=== PATIENT | female | born 1940 | race African-American/Black ===

== ENCOUNTER 2019-07-10 13:33 | Inpatient (IN) ==
[2019-07-10 15:15] LABS: Apearance,Urine CLOUDY (Clear); Bilirubin,Urine Negative (Negative); Blood, Urine Negative (Negative); Glucose,Urine (UA) Negative (Negative); Hyaline Casts,Urine 6 /LPF (0-3); Ketones,Urine 5 mg/dL (Negative); Mucus,Urine Many /LPF (Occasional); Nitrite,Urine Negative (Negative); Protein,Urine 30 MG/DL; RBC,Urine 13 /HPF (0-4); Squamous Epithelial Cell,Urine Occasional /HPF (0-10); Urine Color Yellow (Yellow); Urine Specific Gravity 1.025 (1.001-1.035); Urine Urobilinogen < 2.0 EU/DL (0.2-1.0); WBC,Urine 484 /HPF (0-6)
[2019-07-10] MEDS ORDERED: cefTRIAXone 1,000 MG in SODIUM CHLORIDE 0.9% 100 ML IV STA (15:29)
[2019-07-10 15:43] LABS: Basophils % 0.4 % (0.0-0.8); Eosinophils # 0.1 10*3/uL (0.0-0.87); Eosinophils % 0.9 % (0.00-10.9); Hematocrit 41.1 VOL% (35.7-47.0); Hemoglobin 13.2 GM/DL (12.0-16.0); Immature Granulocytes % 0.3 %; Immature Granulocytes Absolute 0.02 #; Lymphocytes # 2.1 10*3/uL (1.4-4.0); Lymphocytes % 29.9 % (21.3-54.2); Mean Corpuscular HGB Conc 32.1 GM/DL (32-36); Mean Corpuscular Volume 94.3 FL (87-102); Monocytes % 7.2 % (1.7-12.7); Neutrophils % 61.3 % (38.7-73.9); Platelet Count 208 T/CUMM (130-400); Red Blood Count 4.36 MC/CUMM (3.8-5.5); Red Cell Distribution Width 14.3 % (9.3-17.3)
[2019-07-10 15:53] LABS: INR 1.1; PT Patient Result 11.5 SECS (9.6-12.2); Partial Thromboplastin Time 25.7 SECS (20.8-36.0)
[2019-07-10 15:59] LABS: Albumin 3.7 G/DL (3.4-5.0); Bilirubin,Total 0.4 MG/DL (0.2-1.0); Calcium 10.4 MG/DL (8.5-10.1); Osmolality,Calculated 298.3 MOS/KG (273-304); Total Protein 7.9 G/DL (6.4-8.3)
[2019-07-10] MEDS ORDERED: SODIUM CHLORIDE 0.9% 1,000 ML IV SCH (17:00)
[2019-07-10] MEDS ORDERED: ONDANSETRON 4 MG/2 ML VIAL IV PRN (17:57)
[2019-07-10] MEDS ORDERED: ACETAMINOPHEN 325 MG TABLET PO PRN (17:57)
[2019-07-10] MEDS ORDERED: DEXTROSE 10% 250 ML BAG IV PRN (18:26)
[2019-07-10] MEDS ORDERED: GLUCAGON 1 MG VIAL IM PRN (18:26)
[2019-07-10] MEDS: DEXTROSE 5% NACL 0.45% 1,000 ML IV SCH (18:55)
[2019-07-10] MEDS ORDERED: APIXABAN 2.5 MG TABLET PO SCH (21:00)
[2019-07-10] MEDS: GABAPENTIN 100 MG CAPSULE PO SCH (21:11)
[2019-07-10] MEDS: MELATONIN 3 MG TABLET PO SCH (21:11)
[2019-07-10] MEDS: CARVEDILOL 25 MG TABLET PO SCH (21:11)
[2019-07-10] MEDS: DICLOFENAC 1% GEL 100 GM TUBE TOP SCH (21:12)
[2019-07-11] MEDS: DEXTROSE 5% NACL 0.45% 1,000 ML IV SCH ×2 (03:06→11:44)
[2019-07-11 06:14] LABS: Basophils % 0.6 % (0.0-0.8); Eosinophils # 0.1 10*3/uL (0.0-0.87); Eosinophils % 1.1 % (0.00-10.9); Immature Granulocytes % 0.4 %; Immature Granulocytes Absolute 0.02 #; Lymphocytes # 1.8 10*3/uL (1.4-4.0); Lymphocytes % 33.7 % (21.3-54.2); Mean Corpuscular HGB Conc 32.1 GM/DL (32-36); Mean Platelet Volume 11.4 FL (9.6-12.0); Neutrophils % 56.2 % (38.7-73.9); Red Blood Count 3.58 MC/CUMM (3.8-5.5); Red Cell Distribution Width 14.4 % (9.3-17.3); White Blood Count 5.4 T/CUMM (4-12)
[2019-07-11 06:16] LABS: Hemoglobin 10.9 GM/DL (12.0-16.0); Platelet Count 163 T/CUMM (130-400)
[2019-07-11 06:45] LABS: Calcium 9.3 MG/DL (8.5-10.1); Osmolality,Calculated 297.4 MOS/KG (273-304); Thyroid Stimulating Hormone 1.72 uIU/ml (0.358-3.74)
[2019-07-11] MEDS: LOSARTAN 50 MG TABLET PO SCH (08:58)
[2019-07-11] MEDS: ASPIRIN EC 81 MG TABLET PO SCH (08:58)
[2019-07-11] MEDS: CARVEDILOL 25 MG TABLET PO SCH ×2 (08:58→16:27)
[2019-07-11] MEDS: PANTOPRAZOLE 40 MG TABLET PO SCH (08:59)
[2019-07-11] MEDS: SIMVASTATIN 10 MG TABLET PO SCH (08:59)
[2019-07-11] MEDS: CALCIUM (CARBONATE)/VITAMIN D 500 MG-200 UNIT TABLET PO SCH (08:59)
[2019-07-11] MEDS: DICLOFENAC 1% GEL 100 GM TUBE TOP SCH ×4 (08:59→20:04)
[2019-07-11] MEDS: CHOLECALCIFEROL 1,000 UNIT TABLET PO SCH (08:59)
[2019-07-11] MEDS: GABAPENTIN 100 MG CAPSULE PO SCH ×3 (08:59→20:04)
[2019-07-11] MEDS: cefTRIAXone 1,000 MG in SYRINGE 1 EACH IV SCH (09:15)
[2019-07-11] MEDS: ENOXAPARIN 40 MG/0.4 ML SYRINGE SUBCUT SCH (14:23)
[2019-07-11] MEDS: DEXTROSE 5% NACL 0.22% 1,000 ML IV SCH (16:24)
[2019-07-11] MEDS: hydrALAZINE 20 MG/1 ML VIAL IV PRN (16:26)
[2019-07-11] MEDS: MELATONIN 3 MG TABLET PO SCH (20:04)
[2019-07-12] MEDS: DEXTROSE 5% NACL 0.22% 1,000 ML IV SCH ×3 (00:37→21:54)
[2019-07-12 05:21] LABS: Basophils % 0.6 % (0.0-0.8); Eosinophils # 0.1 10*3/uL (0.0-0.87); Eosinophils % 1.2 % (0.00-10.9); Hematocrit 37.6 VOL% (35.7-47.0); Immature Granulocytes % 0.2 %; Immature Granulocytes Absolute 0.01 #; Lymphocytes # 1.5 10*3/uL (1.4-4.0); Lymphocytes % 30.5 % (21.3-54.2); Mean Corpuscular HGB Conc 31.9 GM/DL (32-36); Mean Corpuscular Volume 94.2 FL (87-102); Mean Platelet Volume 11.5 FL (9.6-12.0); Monocytes % 8.4 % (1.7-12.7); Neutrophils % 59.1 % (38.7-73.9); Platelet Count 193 T/CUMM (130-400); Red Blood Count 3.99 MC/CUMM (3.8-5.5); Red Cell Distribution Width 13.9 % (9.3-17.3)
[2019-07-12 05:57] LABS: Calcium 9.6 MG/DL (8.5-10.1); Osmolality,Calculated 289.7 MOS/KG (273-304)
[2019-07-12] MEDS: cefTRIAXone 1,000 MG in SYRINGE 1 EACH IV SCH (08:44)
[2019-07-12] MEDS: GABAPENTIN 100 MG CAPSULE PO SCH ×3 (09:00→21:09)
[2019-07-12] MEDS: CARVEDILOL 25 MG TABLET PO SCH ×2 (09:00→16:47)
[2019-07-12] MEDS: ASPIRIN EC 81 MG TABLET PO SCH (09:00)
[2019-07-12] MEDS: LOSARTAN 50 MG TABLET PO SCH (09:00)
[2019-07-12] MEDS: CHOLECALCIFEROL 1,000 UNIT TABLET PO SCH (09:01)
[2019-07-12] MEDS: DICLOFENAC 1% GEL 100 GM TUBE TOP SCH ×4 (09:01→22:30)
[2019-07-12] MEDS: SIMVASTATIN 10 MG TABLET PO SCH (09:01)
[2019-07-12] MEDS: CALCIUM (CARBONATE)/VITAMIN D 500 MG-200 UNIT TABLET PO SCH (09:01)
[2019-07-12] MEDS: PANTOPRAZOLE 40 MG TABLET PO SCH (09:01)
[2019-07-12] MEDS: hydrALAZINE 20 MG/1 ML VIAL IV PRN (15:54)
[2019-07-12] MEDS ORDERED: hydrALAZINE 20 MG/1 ML VIAL IV SCH (17:00)
[2019-07-12] MEDS ORDERED: MAGNESIUM SULF RIDER 2 GM in PREMIX 1 EACH IV ONE (17:02)
[2019-07-12] MEDS: hydrALAZINE 20 MG/1 ML VIAL IV SCH (17:07)
[2019-07-12] MEDS ORDERED: POTASSIUM CHLORIDE INJ 10 MEQ in DEXTROSE 5% 1,000 ML IV SCH (17:30)
[2019-07-12] MEDS: MULTIVITAMIN INJ 10 ML, TRACE ELEMENTS (5) 1 ML in AMINO ACIDS/DEXT/LYTES 4.25-5% 2,000 ML IV SCH (17:49)
[2019-07-12] MEDS: FAT EMULSION 20% 250 ML IV SCH (17:50)
[2019-07-12] MEDS: MELATONIN 3 MG TABLET PO SCH (21:09)
[2019-07-12] MEDS: NITROGLYCERIN 2% OINT 1 INCH/GM PACK TOP SCH (22:27)
[2019-07-13] MEDS: hydrALAZINE 20 MG/1 ML VIAL IV SCH ×3 (01:29→17:36)
[2019-07-13 05:40] LABS: Basophils % 0.6 % (0.0-0.8); Eosinophils # 0.1 10*3/uL (0.0-0.87); Eosinophils % 1.1 % (0.00-10.9); Hematocrit 40.3 VOL% (35.7-47.0); Hemoglobin 13.1 GM/DL (12.0-16.0); Immature Granulocytes % 0.3 %; Immature Granulocytes Absolute 0.02 #; Lymphocytes # 1.7 10*3/uL (1.4-4.0); Lymphocytes % 26.6 % (21.3-54.2); Mean Corpuscular HGB Conc 32.5 GM/DL (32-36); Mean Corpuscular Volume 93.5 FL (87-102); Mean Platelet Volume 11.4 FL (9.6-12.0); Monocytes % 7.7 % (1.7-12.7); Neutrophils % 63.7 % (38.7-73.9); Platelet Count 223 T/CUMM (130-400); Red Blood Count 4.31 MC/CUMM (3.8-5.5); Red Cell Distribution Width 14.1 % (9.3-17.3); White Blood Count 6.5 T/CUMM (4-12)
[2019-07-13 06:08] LABS: Calcium 9.4 MG/DL (8.5-10.1); Osmolality,Calculated 283.1 MOS/KG (273-304)
[2019-07-13] MEDS: cefTRIAXone 1,000 MG in SYRINGE 1 EACH IV SCH (09:38)
[2019-07-13] MEDS: DICLOFENAC 1% GEL 100 GM TUBE TOP SCH ×4 (09:43→22:19)
[2019-07-13] MEDS: CARVEDILOL 25 MG TABLET PO SCH ×2 (10:34→17:37)
[2019-07-13] MEDS: GABAPENTIN 100 MG CAPSULE PO SCH ×3 (10:34→22:09)
[2019-07-13] MEDS: NITROGLYCERIN 2% OINT 1 INCH/GM PACK TOP SCH ×3 (10:34→22:09)
[2019-07-13] MEDS: CALCIUM (CARBONATE)/VITAMIN D 500 MG-200 UNIT TABLET PO SCH (10:34)
[2019-07-13] MEDS: ASPIRIN EC 81 MG TABLET PO SCH (10:34)
[2019-07-13] MEDS: LOSARTAN 50 MG TABLET PO SCH (10:34)
[2019-07-13] MEDS: PANTOPRAZOLE 40 MG TABLET PO SCH (10:35)
[2019-07-13] MEDS: SIMVASTATIN 10 MG TABLET PO SCH (10:36)
[2019-07-13] MEDS: CHOLECALCIFEROL 1,000 UNIT TABLET PO SCH (10:36)
[2019-07-13] MEDS: POTASSIUM CHLORIDE RIDER 10 MEQ in PREMIX 1 EACH IV SCH ×2 (13:00→15:37)
[2019-07-13] MEDS ORDERED: POTASSIUM CHLORIDE RIDER 10 MEQ in PREMIX 1 EACH IV SCH (15:00)
[2019-07-13] MEDS ORDERED: LORazepam 2 MG/1 ML VIAL IV PRN (16:03)
[2019-07-13] MEDS: FAT EMULSION 20% 250 ML IV SCH (17:26)
[2019-07-13] MEDS: MULTIVITAMIN INJ 10 ML, TRACE ELEMENTS (5) 1 ML in AMINO ACIDS/DEXT/LYTES 4.25-5% 2,000 ML IV SCH (17:27)
[2019-07-13] MEDS ORDERED: ACETAMINOPHEN 650 MG SUPP RECTAL PRN (18:17)
[2019-07-13] MEDS: hydrALAZINE 20 MG/1 ML VIAL IV PRN (18:19)
[2019-07-13] MEDS: MELATONIN 3 MG TABLET PO SCH (22:09)
[2019-07-13] MEDS: FAMOTIDINE 20 MG/2 ML VIAL IV SCH (22:10)
[2019-07-14] MEDS: hydrALAZINE 20 MG/1 ML VIAL IV SCH ×3 (01:53→16:40)
[2019-07-14 06:01] LABS: Basophils % 0.5 % (0.0-0.8); Eosinophils # 0.1 10*3/uL (0.0-0.87); Eosinophils % 1.4 % (0.00-10.9); Hematocrit 40.9 VOL% (35.7-47.0); Hemoglobin 13.2 GM/DL (12.0-16.0); Immature Granulocytes % 0.3 %; Immature Granulocytes Absolute 0.02 #; Lymphocytes # 1.9 10*3/uL (1.4-4.0); Lymphocytes % 29.1 % (21.3-54.2); Mean Corpuscular HGB Conc 32.3 GM/DL (32-36); Mean Corpuscular Volume 92.5 FL (87-102); Mean Platelet Volume 10.6 FL (9.6-12.0); Monocytes % 7.7 % (1.7-12.7); Platelet Count 209 T/CUMM (130-400); Red Blood Count 4.42 MC/CUMM (3.8-5.5); Red Cell Distribution Width 14.4 % (9.3-17.3); White Blood Count 6.5 T/CUMM (4-12)
[2019-07-14 06:28] LABS: Calcium 9.5 MG/DL (8.5-10.1)
[2019-07-14] MEDS: CARVEDILOL 25 MG TABLET PO SCH ×2 (07:26→16:39)
[2019-07-14] MEDS: cefTRIAXone 1,000 MG in SYRINGE 1 EACH IV SCH (08:08)
[2019-07-14] MEDS: GABAPENTIN 100 MG CAPSULE PO SCH ×3 (09:49→21:10)
[2019-07-14] MEDS: CHOLECALCIFEROL 1,000 UNIT TABLET PO SCH (09:49)
[2019-07-14] MEDS: ASPIRIN EC 81 MG TABLET PO SCH (09:49)
[2019-07-14] MEDS: LOSARTAN 50 MG TABLET PO SCH (09:49)
[2019-07-14] MEDS: SIMVASTATIN 10 MG TABLET PO SCH (09:49)
[2019-07-14] MEDS: CALCIUM (CARBONATE)/VITAMIN D 500 MG-200 UNIT TABLET PO SCH (09:51)
[2019-07-14] MEDS: FAMOTIDINE 20 MG/2 ML VIAL IV SCH ×2 (10:19→21:19)
[2019-07-14] MEDS: NITROGLYCERIN 2% OINT 1 INCH/GM PACK TOP SCH ×2 (10:20→21:10)
[2019-07-14] MEDS: DICLOFENAC 1% GEL 100 GM TUBE TOP SCH ×4 (10:20→21:21)
[2019-07-14] MEDS ORDERED: PROPOFOL 200 MG/20 ML VIAL IV ONE (12:02)
[2019-07-14] MEDS: ENOXAPARIN 40 MG/0.4 ML SYRINGE SUBCUT SCH (13:50)
[2019-07-14] MEDS: FAT EMULSION 20% 250 ML IV SCH (13:50)
[2019-07-14] MEDS: ACETAMINOPHEN 325 MG TABLET PO PRN ×2 (14:51→21:10)
[2019-07-14] MEDS: MULTIVITAMIN INJ 10 ML, TRACE ELEMENTS (5) 1 ML in AMINO ACIDS/DEXT/LYTES 4.25-5% 2,000 ML IV SCH (16:47)
[2019-07-14] MEDS: MELATONIN 3 MG TABLET PO SCH (21:10)
[2019-07-15] MEDS: hydrALAZINE 20 MG/1 ML VIAL IV SCH ×3 (01:24→19:03)
[2019-07-15] MEDS: CALCIUM (CARBONATE)/VITAMIN D 500 MG-200 UNIT TABLET PO SCH (11:45)
[2019-07-15] MEDS: SIMVASTATIN 10 MG TABLET PO SCH (11:50)
[2019-07-15] MEDS: LOSARTAN 50 MG TABLET PO SCH (11:50)
[2019-07-15] MEDS: ACETAMINOPHEN 325 MG TABLET PO PRN ×2 (11:50→19:26)
[2019-07-15] MEDS: GABAPENTIN 100 MG CAPSULE PO SCH ×3 (11:50→20:59)
[2019-07-15] MEDS: CARVEDILOL 25 MG TABLET PO SCH ×2 (12:08→19:26)
[2019-07-15] MEDS: ASPIRIN EC 81 MG TABLET PO SCH (12:08)
[2019-07-15] MEDS: DICLOFENAC 1% GEL 100 GM TUBE TOP SCH ×4 (12:14→21:00)
[2019-07-15] MEDS: CHOLECALCIFEROL 1,000 UNIT TABLET PO SCH (12:14)
[2019-07-15] MEDS: NITROGLYCERIN 2% OINT 1 INCH/GM PACK TOP SCH ×2 (12:14→21:00)
[2019-07-15] MEDS: FAMOTIDINE 20 MG/2 ML VIAL IV SCH ×2 (13:48→20:59)
[2019-07-15] MEDS: ENOXAPARIN 40 MG/0.4 ML SYRINGE SUBCUT SCH (13:55)
[2019-07-15] MEDS: FAT EMULSION 20% 250 ML IV SCH (16:45)
[2019-07-15] MEDS: MULTIVITAMIN INJ 10 ML, TRACE ELEMENTS (5) 1 ML in AMINO ACIDS/DEXT/LYTES 4.25-5% 2,000 ML IV SCH (19:17)
[2019-07-15] MEDS: MELATONIN 3 MG TABLET PO SCH (21:00)
[2019-07-16] MEDS: hydrALAZINE 20 MG/1 ML VIAL IV SCH ×3 (00:36→16:55)
[2019-07-16 05:46] LABS: Calcium 9.6 MG/DL (8.5-10.1); Osmolality,Calculated 285.7 MOS/KG (273-304)
[2019-07-16] MEDS: FAMOTIDINE 20 MG/2 ML VIAL IV SCH ×2 (08:47→20:55)
[2019-07-16] MEDS: CALCIUM (CARBONATE)/VITAMIN D 500 MG-200 UNIT TABLET PO SCH (08:53)
[2019-07-16] MEDS: ASPIRIN EC 81 MG TABLET PO SCH (08:53)
[2019-07-16] MEDS: SIMVASTATIN 10 MG TABLET PO SCH (08:53)
[2019-07-16] MEDS: CARVEDILOL 25 MG TABLET PO SCH ×2 (08:53→17:26)
[2019-07-16] MEDS: GABAPENTIN 100 MG CAPSULE PO SCH ×3 (08:54→20:55)
[2019-07-16] MEDS: LOSARTAN 50 MG TABLET PO SCH (08:54)
[2019-07-16] MEDS: NITROGLYCERIN 2% OINT 1 INCH/GM PACK TOP SCH ×2 (09:02→20:55)
[2019-07-16] MEDS: CHOLECALCIFEROL 1,000 UNIT TABLET PO SCH (09:03)
[2019-07-16] MEDS: DICLOFENAC 1% GEL 100 GM TUBE TOP SCH ×4 (09:03→20:55)
[2019-07-16] MEDS: ENOXAPARIN 40 MG/0.4 ML SYRINGE SUBCUT SCH (14:47)
[2019-07-16] MEDS: MELATONIN 3 MG TABLET PO SCH (20:54)
[2019-07-16] MEDS: MULTIVITAMIN INJ 10 ML, TRACE ELEMENTS (5) 1 ML in AMINO ACIDS/DEXT/LYTES 4.25-5% 2,000 ML IV SCH (21:27)
[2019-07-17] MEDS: hydrALAZINE 20 MG/1 ML VIAL IV SCH ×3 (01:44→17:40)
[2019-07-17] MEDS: GABAPENTIN 100 MG CAPSULE PO SCH ×3 (09:27→21:22)
[2019-07-17] MEDS: LOSARTAN 50 MG TABLET PO SCH (09:27)
[2019-07-17] MEDS: SIMVASTATIN 10 MG TABLET PO SCH (09:27)
[2019-07-17] MEDS: ASPIRIN EC 81 MG TABLET PO SCH (09:27)
[2019-07-17] MEDS: DICLOFENAC 1% GEL 100 GM TUBE TOP SCH ×4 (09:28→21:23)
[2019-07-17] MEDS: CARVEDILOL 25 MG TABLET PO SCH ×2 (09:28→17:40)
[2019-07-17] MEDS: CALCIUM (CARBONATE)/VITAMIN D 500 MG-200 UNIT TABLET PO SCH (09:28)
[2019-07-17] MEDS: NITROGLYCERIN 2% OINT 1 INCH/GM PACK TOP SCH ×2 (09:28→21:14)
[2019-07-17] MEDS: CHOLECALCIFEROL 1,000 UNIT TABLET PO SCH (09:28)
[2019-07-17] MEDS: FAMOTIDINE 20 MG/2 ML VIAL IV SCH ×2 (09:36→21:24)
[2019-07-17] MEDS: ENOXAPARIN 40 MG/0.4 ML SYRINGE SUBCUT SCH (13:33)
[2019-07-17] MEDS: ALBUTEROL/IPRATROPIUM 3 ML NEB RESP TX PRN (16:45)
[2019-07-17] MEDS: MELATONIN 3 MG TABLET PO SCH (21:23)
[2019-07-18] MEDS: hydrALAZINE 20 MG/1 ML VIAL IV SCH ×3 (00:53→16:30)
[2019-07-18 06:16] LABS: Calcium 9.2 MG/DL (8.5-10.1); Osmolality,Calculated 289.5 MOS/KG (273-304); Prealbumin 17.2 MG/DL (20-40)
[2019-07-18] MEDS: CARVEDILOL 25 MG TABLET PO SCH ×2 (09:26→16:30)
[2019-07-18] MEDS: CALCIUM (CARBONATE)/VITAMIN D 500 MG-200 UNIT TABLET PO SCH (09:26)
[2019-07-18] MEDS: ASPIRIN EC 81 MG TABLET PO SCH (09:26)
[2019-07-18] MEDS: LOSARTAN 50 MG TABLET PO SCH (09:26)
[2019-07-18] MEDS: DICLOFENAC 1% GEL 100 GM TUBE TOP SCH ×4 (09:27→20:44)
[2019-07-18] MEDS: NITROGLYCERIN 2% OINT 1 INCH/GM PACK TOP SCH ×2 (09:27→20:42)
[2019-07-18] MEDS: SIMVASTATIN 10 MG TABLET PO SCH (09:27)
[2019-07-18] MEDS: CHOLECALCIFEROL 1,000 UNIT TABLET PO SCH (09:27)
[2019-07-18] MEDS: GABAPENTIN 100 MG CAPSULE PO SCH ×3 (09:27→20:43)
[2019-07-18] MEDS: FAMOTIDINE 20 MG/2 ML VIAL IV SCH ×2 (09:39→20:44)
[2019-07-18] MEDS: methylPREDNISolone SOD SUC 125 MG/2 ML VIAL IV SCH ×2 (09:49→16:27)
[2019-07-18] MEDS: ENOXAPARIN 40 MG/0.4 ML SYRINGE SUBCUT SCH (13:52)
[2019-07-18] MEDS: ALBUTEROL/IPRATROPIUM 3 ML NEB RESP TX PRN (17:30)
[2019-07-18] MEDS: MELATONIN 3 MG TABLET PO SCH (20:43)
[2019-07-19] MEDS: INSULIN REGULAR 100 UNIT/ML SUBCUT SCH ×4 (00:48→18:18)
[2019-07-19] MEDS: methylPREDNISolone SOD SUC 125 MG/2 ML VIAL IV SCH ×3 (00:48→18:16)
[2019-07-19] MEDS: hydrALAZINE 20 MG/1 ML VIAL IV SCH ×3 (00:51→17:00)
[2019-07-19 07:46] LABS: Calcium 9.9 MG/DL (8.5-10.1); Osmolality,Calculated 294.7 MOS/KG (273-304)
[2019-07-19] MEDS: CARVEDILOL 25 MG TABLET PO SCH ×2 (10:13→18:16)
[2019-07-19] MEDS: ASPIRIN EC 81 MG TABLET PO SCH (10:13)
[2019-07-19] MEDS: LOSARTAN 50 MG TABLET PO SCH (10:14)
[2019-07-19] MEDS: CALCIUM (CARBONATE)/VITAMIN D 500 MG-200 UNIT TABLET PO SCH (10:14)
[2019-07-19] MEDS: GABAPENTIN 100 MG CAPSULE PO SCH ×3 (10:14→21:13)
[2019-07-19] MEDS: CHOLECALCIFEROL 1,000 UNIT TABLET PO SCH (10:15)
[2019-07-19] MEDS: SIMVASTATIN 10 MG TABLET PO SCH (10:15)
[2019-07-19] MEDS: FAMOTIDINE 20 MG/2 ML VIAL IV SCH ×2 (10:16→21:13)
[2019-07-19] MEDS: NITROGLYCERIN 2% OINT 1 INCH/GM PACK TOP SCH ×2 (10:24→21:13)
[2019-07-19] MEDS: DICLOFENAC 1% GEL 100 GM TUBE TOP SCH ×4 (10:43→21:14)
[2019-07-19] MEDS: ENOXAPARIN 40 MG/0.4 ML SYRINGE SUBCUT SCH (15:23)
[2019-07-19] MEDS: MELATONIN 3 MG TABLET PO SCH (21:13)
[2019-07-20] MEDS: INSULIN REGULAR 100 UNIT/ML SUBCUT SCH ×4 (01:18→18:31)
[2019-07-20] MEDS: methylPREDNISolone SOD SUC 125 MG/2 ML VIAL IV SCH ×3 (01:19→17:09)
[2019-07-20] MEDS: hydrALAZINE 20 MG/1 ML VIAL IV SCH ×3 (01:31→17:04)
[2019-07-20] MEDS ORDERED: KETOROLAC 15 MG/1 ML VIAL IV ONE (05:36)
[2019-07-20] MEDS ORDERED: ALUM/MAG/SIMETH/LIDO VISC 1:1 30 ML BOTTLE PO ONE (07:00)
[2019-07-20] MEDS: FAMOTIDINE 20 MG/2 ML VIAL IV SCH ×2 (09:34→20:36)
[2019-07-20] MEDS: ASPIRIN EC 81 MG TABLET PO SCH (09:35)
[2019-07-20] MEDS: CHOLECALCIFEROL 1,000 UNIT TABLET PO SCH (09:35)
[2019-07-20] MEDS: GABAPENTIN 100 MG CAPSULE PO SCH ×3 (09:35→20:36)
[2019-07-20] MEDS: LOSARTAN 50 MG TABLET PO SCH (09:35)
[2019-07-20] MEDS: CARVEDILOL 25 MG TABLET PO SCH ×2 (09:36→17:04)
[2019-07-20] MEDS: SIMVASTATIN 10 MG TABLET PO SCH (09:36)
[2019-07-20] MEDS: CALCIUM (CARBONATE)/VITAMIN D 500 MG-200 UNIT TABLET PO SCH (09:36)
[2019-07-20] MEDS: NITROGLYCERIN 2% OINT 1 INCH/GM PACK TOP SCH ×2 (10:10→20:37)
[2019-07-20] MEDS: DICLOFENAC 1% GEL 100 GM TUBE TOP SCH ×5 (10:10→20:37)
[2019-07-20] MEDS: ENOXAPARIN 40 MG/0.4 ML SYRINGE SUBCUT SCH (14:32)
[2019-07-20] MEDS: MELATONIN 3 MG TABLET PO SCH (20:36)
[2019-07-21] MEDS: INSULIN REGULAR 100 UNIT/ML SUBCUT SCH ×5 (00:05→23:30)
[2019-07-21] MEDS: methylPREDNISolone SOD SUC 125 MG/2 ML VIAL IV SCH ×4 (00:06→23:30)
[2019-07-21] MEDS: hydrALAZINE 20 MG/1 ML VIAL IV SCH ×3 (00:41→17:44)
[2019-07-21] MEDS: ACETAMINOPHEN 325 MG TABLET PO PRN ×2 (06:09→21:00)
[2019-07-21] MEDS: DICLOFENAC 1% GEL 100 GM TUBE TOP SCH ×4 (09:00→21:00)
[2019-07-21] MEDS: ASPIRIN EC 81 MG TABLET PO SCH (09:33)
[2019-07-21] MEDS: CHOLECALCIFEROL 1,000 UNIT TABLET PO SCH (09:33)
[2019-07-21] MEDS: LOSARTAN 50 MG TABLET PO SCH (09:33)
[2019-07-21] MEDS: CARVEDILOL 25 MG TABLET PO SCH ×2 (09:34→17:43)
[2019-07-21] MEDS: NITROGLYCERIN 2% OINT 1 INCH/GM PACK TOP SCH ×2 (09:34→21:03)
[2019-07-21] MEDS: CALCIUM (CARBONATE)/VITAMIN D 500 MG-200 UNIT TABLET PO SCH (09:34)
[2019-07-21] MEDS: GABAPENTIN 100 MG CAPSULE PO SCH ×3 (09:34→21:00)
[2019-07-21] MEDS: SIMVASTATIN 10 MG TABLET PO SCH (09:34)
[2019-07-21] MEDS: FAMOTIDINE 20 MG/2 ML VIAL IV SCH ×2 (09:37→21:02)
[2019-07-21] MEDS: ENOXAPARIN 40 MG/0.4 ML SYRINGE SUBCUT SCH (15:27)
[2019-07-21] MEDS: DIAZEPAM 2 MG TABLET PO SCH ×2 (15:47→21:01)
[2019-07-21] MEDS: ALBUTEROL/IPRATROPIUM 3 ML NEB RESP TX PRN ×2 (17:20→22:41)
[2019-07-21] MEDS: MELATONIN 3 MG TABLET PO SCH (21:01)
[2019-07-22] MEDS: hydrALAZINE 20 MG/1 ML VIAL IV SCH ×3 (01:14→17:01)
[2019-07-22] MEDS: INSULIN REGULAR 100 UNIT/ML SUBCUT SCH ×3 (06:05→20:13)
[2019-07-22] MEDS ORDERED: LIDOCAINE MPF 1% /EPI 30 ML VIAL ONE (07:31)
[2019-07-22] MEDS ORDERED: BUPIVACAINE 0.5% 50 ML VIAL ONE (07:31)
[2019-07-22] MEDS ORDERED: TISSUE ADHESIVE 1 EACH APPLICATOR TOP ONE (08:21)
[2019-07-22] MEDS ORDERED: PROPOFOL 200 MG/20 ML VIAL IV ONE (08:34)
[2019-07-22] MEDS ORDERED: PHENYLEPHRINE 1 MG/10 ML SYRINGE IV ONE (08:34)
[2019-07-22] MEDS ORDERED: SODIUM CHLORIDE 0.9% 250 ML IV ONE (08:34)
[2019-07-22] MEDS: FAMOTIDINE 20 MG/2 ML VIAL IV SCH (09:43)
[2019-07-22] MEDS: CALCIUM (CARBONATE)/VITAMIN D 500 MG-200 UNIT TABLET PO SCH (09:46)
[2019-07-22] MEDS: DIAZEPAM 2 MG TABLET PO SCH ×2 (09:46→15:26)
[2019-07-22] MEDS: SIMVASTATIN 10 MG TABLET PO SCH (09:46)
[2019-07-22] MEDS: GABAPENTIN 100 MG CAPSULE PO SCH ×3 (09:46→21:20)
[2019-07-22] MEDS: CARVEDILOL 25 MG TABLET PO SCH ×2 (09:46→17:02)
[2019-07-22] MEDS: ASPIRIN EC 81 MG TABLET PO SCH (09:46)
[2019-07-22] MEDS: LOSARTAN 50 MG TABLET PO SCH (09:46)
[2019-07-22] MEDS: CHOLECALCIFEROL 1,000 UNIT TABLET PO SCH (09:47)
[2019-07-22] MEDS: NITROGLYCERIN 2% OINT 1 INCH/GM PACK TOP SCH ×2 (09:47→21:20)
[2019-07-22] MEDS: DICLOFENAC 1% GEL 100 GM TUBE TOP SCH ×4 (09:47→21:35)
[2019-07-22] MEDS: methylPREDNISolone SOD SUC 125 MG/2 ML VIAL IV SCH ×2 (10:00→16:59)
[2019-07-22] MEDS ORDERED: DIAZEPAM 2 MG TABLET PO PRN (15:20)
[2019-07-22] MEDS: ZINC OXIDE PASTE 113 GM TUBE TOP SCH ×2 (16:59→21:36)
[2019-07-22] MEDS: MELATONIN 3 MG TABLET PO SCH (21:20)
[2019-07-23] MEDS: methylPREDNISolone SOD SUC 125 MG/2 ML VIAL IV SCH ×3 (00:51→17:25)
[2019-07-23] MEDS: INSULIN REGULAR 100 UNIT/ML SUBCUT SCH ×4 (00:51→19:10)
[2019-07-23] MEDS: hydrALAZINE 20 MG/1 ML VIAL IV SCH ×3 (00:52→17:26)
[2019-07-23 05:40] LABS: Calcium 8.9 MG/DL (8.5-10.1); Osmolality,Calculated 302.5 MOS/KG (273-304)
[2019-07-23] MEDS: LANSOPRAZOLE ODT 30 MG TABLET PEG SCH (09:31)
[2019-07-23] MEDS: LOSARTAN 50 MG TABLET PO SCH (09:31)
[2019-07-23] MEDS: ASPIRIN EC 81 MG TABLET PO SCH (09:31)
[2019-07-23] MEDS: CALCIUM (CARBONATE)/VITAMIN D 500 MG-200 UNIT TABLET PO SCH (09:32)
[2019-07-23] MEDS: CARVEDILOL 25 MG TABLET PO SCH ×2 (09:32→17:27)
[2019-07-23] MEDS: CHOLECALCIFEROL 1,000 UNIT TABLET PO SCH (09:32)
[2019-07-23] MEDS: GABAPENTIN 100 MG CAPSULE PO SCH ×3 (09:32→21:19)
[2019-07-23] MEDS: ZINC OXIDE PASTE 113 GM TUBE TOP SCH ×2 (10:57→21:19)
[2019-07-23] MEDS: DICLOFENAC 1% GEL 100 GM TUBE TOP SCH ×4 (10:57→21:19)
[2019-07-23] MEDS: NITROGLYCERIN 2% OINT 1 INCH/GM PACK TOP SCH ×2 (10:57→21:19)
[2019-07-23 18:20] LABS: ABG Base Excess 2.3 MMOL/L (-2.5-2.5); ABG HCO3 26.3 MMOL/L (20-26); ABG Oxygen Saturation 92.1 % (95-100); ABG PCO2 40.8 MM HG (35-48); ABG PH 7.426 (7.35-7.45); ABG TCO2 23.3 MMOL/L (23-27)
[2019-07-23] MEDS: MELATONIN 3 MG TABLET PO SCH (21:19)
[2019-07-24] MEDS: INSULIN REGULAR 100 UNIT/ML SUBCUT SCH ×4 (00:32→18:38)
[2019-07-24] MEDS: methylPREDNISolone SOD SUC 125 MG/2 ML VIAL IV SCH ×2 (00:33→10:28)
[2019-07-24] MEDS: hydrALAZINE 20 MG/1 ML VIAL IV SCH ×3 (00:33→17:31)
[2019-07-24 03:24] LABS: Apearance,Urine Slightly Hazy (Clear); Bacteria,Urine Occasional /HPF (Few); Bilirubin,Urine Negative (Negative); Blood, Urine Moderate mg/dL (Negative); Glucose,Urine (UA) 50 mg/dL (Negative); Ketones,Urine Negative (Negative); Mucus,Urine Occasional /LPF (Occasional); Nitrite,Urine Negative (Negative); Protein,Urine Negative; RBC,Urine 2 /HPF (0-4); Renal Epithelial Cells,Urine Few /HPF (<1); Squamous Epithelial Cell,Urine Occasional /HPF (0-10); Urine Color Yellow (Yellow); Urine Specific Gravity 1.025 (1.001-1.035); Urine Urobilinogen < 2.0 EU/DL (0.2-1.0); WBC,Urine 19 /HPF (0-6)
[2019-07-24 08:28] LABS: Basophils % 0.3 % (0.0-0.8); Hemoglobin 12.9 GM/DL (12.0-16.0); Immature Granulocytes % 1.2 %; Immature Granulocytes Absolute 0.19 #; Lymphocytes # 0.5 10*3/uL (1.4-4.0); Lymphocytes % 3.5 % (21.3-54.2); Mean Corpuscular HGB Conc 32.3 GM/DL (32-36); Mean Corpuscular Volume 94.6 FL (87-102); Monocytes % 8.7 % (1.7-12.7); Neutrophils % 86.3 % (38.7-73.9); Platelet Count 283 T/CUMM (130-400); Red Blood Count 4.23 MC/CUMM (3.8-5.5); Red Cell Distribution Width 14.7 % (9.3-17.3); White Blood Count 15.2 T/CUMM (4-12)
[2019-07-24 08:53] LABS: Hypochromasia Slight; Lymphocytes 2 % (20-55); Ovalocytes Slight; Platelet Estimate Adequate; Segmented Neutrophils 89 % (50-85); Total Cells Counted 100
[2019-07-24] MEDS ORDERED: INSULIN GLARGINE 100 UNIT/ML SUBCUT SCH (09:00)
[2019-07-24 09:42] LABS: Striational (Striated Muscle) Negative titer (<1:120)
[2019-07-24] MEDS: CALCIUM (CARBONATE)/VITAMIN D 500 MG-200 UNIT TABLET PO SCH (10:31)
[2019-07-24] MEDS: LOSARTAN 50 MG TABLET PO SCH (10:31)
[2019-07-24] MEDS: LANSOPRAZOLE ODT 30 MG TABLET PEG SCH (10:31)
[2019-07-24] MEDS: CARVEDILOL 25 MG TABLET PO SCH ×2 (10:31→17:34)
[2019-07-24] MEDS: GABAPENTIN 100 MG CAPSULE PO SCH ×3 (10:31→21:33)
[2019-07-24] MEDS: ASPIRIN EC 81 MG TABLET PO SCH (10:31)
[2019-07-24] MEDS: ZINC OXIDE PASTE 113 GM TUBE TOP SCH ×2 (10:32→21:43)
[2019-07-24] MEDS: CHOLECALCIFEROL 1,000 UNIT TABLET PO SCH (10:32)
[2019-07-24] MEDS: NITROGLYCERIN 2% OINT 1 INCH/GM PACK TOP SCH ×2 (10:52→21:43)
[2019-07-25] MEDS: INSULIN REGULAR 100 UNIT/ML SUBCUT SCH (00:22)
[2019-07-25] MEDS: hydrALAZINE 20 MG/1 ML VIAL IV SCH (01:58)
[2019-07-25 07:01] VITALS: BP 135/65
== END 2019-07-25 09:46 | disposition expired | DRG 40 ==
LOC: N.ED 13:33 → N.EDINP 16:40 → SUATTDRO 16:40 → N.5E 17:14 → N.3E 17:17
PROVIDERS: ADMIT Internal Medicine; ATTEND Internal Medicine
PROC: EGDWPEG (ICD-10-PCS; 2019-07-14 08:05)